=== PATIENT | male | born 1990 | race Two or more races ===

== ENCOUNTER 2017-11-03 15:16 | Emergency (ER) | payer MEDICAID ==
[~2017-11-03] VITALS: Ht 182.9 cm; Wt 113.4 kg
[2017-11-03 15:20] VITALS: BP 117/77
== END 2017-11-03 16:31 | disposition home or self-care (01) ==
LOC: ER 15:18
DX: H72.91 Unspecified perforation of tympanic membrane, right ear (principal); F17.200 Nicotine dependence, unspecified, uncomplicated; Z98.890 Other specified postprocedural states; Z88.5 Allergy status to narcotic agent; Z88.8 Allergy status to other drugs, medicaments and biological substances; Z91.013 Allergy to seafood
CPT/HCPCS: 99283; 99406; A4606; Z7610